=== PATIENT | female | born 1970 | race Caucasian/White ===

== ENCOUNTER 2018-01-05 21:03 | Emergency (ER) | payer BC, OTHER ==
[~2018-01-05] VITALS: Ht 162.6 cm; Wt 69.6 kg
[~2018-01-05 21:03] MED LIST: EPP3/2 IM; IBUP600T44 PO; METO50TA8 PO; OXYC-57 PO
[2018-01-05 21:17] VITALS: BP 128/88; PULSE 74; TEMP 36.6; O2SAT 98; Ht 162.6 cm; Wt 69.6 kg
--- NOTE | 2018-01-06 09:46 | EMERGENCY ROOM VISIT NOTE ---
ED Visit Note First contact with patient: 21:22 Chief Complaint: Needlestick injury. History of Present Illness: Ms. Corrales is a 47-year-old white female who ambulates into the ED reporting a needlestick injury to the posterior proximal femoral necks of the right index finger. 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 This occurred approximately 30 minutes prior to arrival at the hospital. She does report she clean the wound with soap and water and alcohol. Currently she is denying all associated symptoms including pain in the area of the needlestick and numbness and tingling throughout the finger. Review of Systems: As noted above in history of present illness. Past Medical History: Hypertension, status post section and hysterectomy. Current Medications: Medications Dose Route/Sig Max Daily Dose Days Date Category Motrin (Ibuprofen) 600 Mg Tab 600 Mg PO Q4H PRN 06/14/12 Rx Percocet 5MG/325MG (Oxycodone/Acetaminophen) Tab 1-2 Tab PO Q4H PRN 06/14/12 Rx Epipen (Epinephrine) 0.3 Mg/0.3 Ml Inj 0.3 Mg IM UD 06/13/12 Reported Toprol-Xl (Metoprolol Succinate) 50 Mg Tabcr 50 Mg PO DAILY 06/13/12 Reported Allergies to Medications: Benadryl, iodine and penicillin. Social History: Patient is currently employed; she feels safe in her home environment; she denies tobacco and alcohol use. Tetanus Immunization Status: Patient reports up-to-date. Physical Examination: Vital Signs: Date Time Temp Pulse Resp B/P (MAP) Pulse Ox O2 Delivery O2 Flow Rate FiO2 01/05/18 21:17 36.6 74 16 128/88 98 Room Air GENERAL: 47-year-old female in no acute distress, nontoxic-appearing, afebrile and hemodynamically stable. NEUROLOGICAL: Awake, alert and oriented to person, place and time. Answering questions appropriately and following commands. SKIN: Warm, dry and pink. Right Hand: Single puncture wound noted to the proximal aspect of the proximal femoral necks of the right and asked finger. No active bleeding. ED Course: Patient is assessed as noted above. Patient's medication list was reviewed. This was considered a significant exposure. Patient was counseled on the explanation of HIV testing, testing as part of the significant exposure protocol and the meaning and results of the testing and the possibility of false positives and false negatives. Consent for testing was reviewed with the patient and she signed. Laboratory tests were drawn and are currently pending. Patient was educated about today's findings and instructed on her treatment plan ; she verbalized understanding and agreement with this plan. Clinical Impression: Significant needlestick injury. Work-related injury. Disposition: Patient was discharged home after her blood work was drawn. Prior to departure she was reassessed and was pain and symptom-free. Plan: Wound care and signs of infection were discussed with the patient. Patient was encouraged to follow-up with employee health for her testing results from today's visit. Patient was encouraged return the ED for any signs of infection or any new/ concerning symptoms.
== END 2018-01-05 21:50 | disposition home or self-care (01) ==
LOC: C.EDB 21:05 → C.EDD 21:50
DX: S61.230A Puncture wound without foreign body of right index finger without damage to nail, initial encounter (principal); W46.1XXA Contact with contaminated hypodermic needle, initial encounter; Y92.89 Other specified places as the place of occurrence of the external cause; Y99.0 Civilian activity done for income or pay; I10 Essential (primary) hypertension; Z79.899 Other long term (current) drug therapy; Z88.0 Allergy status to penicillin; Z88.8 Allergy status to other drugs, medicaments and biological substances